=== PATIENT | female | born 1970 | race Hispanic/Latino ===

== ENCOUNTER → 2019-05-16 | Outpatient (CLI) | payer BC ==
[~2019-05-16] MED LIST: IOPAMIDOL 370 MG/ML 200 ML INFUS..BTL INJ ONE; SODIUM CHLORIDE 0.9% 250ML 250 ML ONE
--- NOTE | 2019-05-16 14:56 | Diagnostic Imaging Report ---
CT of the abdomen and pelvis, with contrast, 05/16/2019. History: Hematuria. Comparison: None available. Technique: Multidetector CT scanning of the abdomen and pelvis was performed from the level of the lung bases to the inferior pubic rami after intravenous administration of contrast. Coronal and sagittal multiplanar reformations were obtained. RADIATION DOSE: Total DLP: 771 mGy*cm Dose modulation, iterative reconstruction, and/or weight based adjustment of the mA/kV was utilized to reduce the radiation dose to as low as reasonably achievable. Discussion: LUNG BASES: No visualized abnormalities. ABDOMEN: A 6 mm hypodensity is present in the upper pole of the left kidney. The kidneys are otherwise unremarkable. There is no evidence of hydronephrosis or nephrolithiasis. The ureters are partially visualized throughout their course to the bladder without evidence of irregularity or filling defect. The mid portions of both ureters are not opacified with contrast. The liver, gallbladder, biliary tree, spleen, pancreas, and adrenal glands are normal. The abdominal aorta is within normal limits for size. Evaluation of bowel is limited without oral contrast. There is no bowel dilatation. The appendix is visualized and is normal. There is no evidence of adenopathy or free fluid. PELVIS: The bladder, uterus, adnexa are normal in appearance. There is a trace amount of free fluid, likely physiologic. BONES AND SOFT TISSUES: No abnormality. IMPRESSION: 6 mm left renal hypodensity which is too small to characterize. Otherwise unremarkable urinary system. Signed by: Henrry Gorman on 05/16/2019 2:53 PM
== END ==
LOC: CT 11:15
PROVIDERS: ATTEND Urology
DX: R31.21 Asymptomatic microscopic hematuria (principal); N28.1 Cyst of kidney, acquired
CPT/HCPCS: 74178; 81025; J7050; Q9967